=== PATIENT | male | born 1990 | race American Indian/Alaskan Native ===

== ENCOUNTER 2016-09-08 14:07 | Emergency (ER) | payer SELFPAY ==
[2016-09-08 14:13] VITALS: BP 121/71
--- NOTE | 2016-09-08 17:55 | Emergency Department Report ---
Chief Complaint: Rectal Pain Stated Complaint: POSS STD Time Seen by Provider: 09/08/16 17:24 - HPI History of Present Illness: Patient here reports that he had rectal pain and some bleeding for a year. He said he has a history of hemorrhoids in the past. He said he noticed some red in his stool and it's been going on for over a year. She reports only when he has to force himself to go to the bathroom that the blood comes but if his stool soft there is no blood. He denies any pain at present. Reports pain when having a bowel movement only. Denies any rectal discharge. Patient is also wondering if she can get a body scan and 1 to check for STD. She reports that he has some drainage from his penis. Denies any fever or chills. Any abdominal or testicular pain. Eyes any urinary burning frequency or urgency. - ROS Review of Systems: all Systems are negative unless stated in HPI above. - Exam Vital Signs: Vital Signs 09/08/16 14:10 Temperature 98.8 F Pulse Rate 103 H Respiratory 18 Rate Blood Pressure 121/71 O2 Sat by Pulse 98 Oximetry Physical Exam: Head: Normocephalic atraumatic Neck: Supple, no C-spine tenderness, no tracheal deviation. Nontender to palpate. no adenopathy Eyes: Bilateral pupils equal and reactive to light, bilateral EOM intact. Bilateral sclera and conjunctiva with injection. Normal accommodation Abdomen:, Nontender to palpation in all quadrants. No guarding or rebound tenderness. Negative CVA tenderness. Bowel sounds. Male : No penile rash or lesion noted. Normal penis exam. Small internal rectal hemorrhoids felt. No no overt bleeding noted from rectal area Lungs: Clear to auscultate bilaterally no rhonchi wheezes or rales. Normal work of breathing extremity; No CCE. +2 pulses. No neurovascular compromise Cardiovascular: S1-S2, tachycardia at 103 .regular rhythm. No murmurs. Skin: Clean dry and intact. No rash or lesions MSE screening note: Focused history and physical exam performed. Due to findings the following was ordered:TBD ED Disposition for MSE Condition: Stable
== END 2016-09-08 18:50 | disposition home or self-care (01) ==
LOC: ED 14:07
DX: K62.89 Other specified diseases of anus and rectum (principal); K62.5 Hemorrhage of anus and rectum; Z53.21 Procedure and treatment not carried out due to patient leaving prior to being seen by health care provider

== ENCOUNTER 2020-12-05 20:59 | Emergency (ER) | payer SELFPAY | END 2020-12-06 | disposition left against medical advice (07) | LOC: ED 20:59 | DX: R11.0 Nausea (principal); Z53.21 Procedure and treatment not carried out due to patient leaving prior to being seen by health care provider ==